=== PATIENT | male | born 1960 | race Caucasian/White ===

== ENCOUNTER 2024-03-29 17:09 | Emergency (ER) | payer OTHER, SELFPAY ==
[2024-03-29 17:10] VITALS: BP 178/96; PULSE 82; RESP 19; TEMP 36.2; O2SAT 99; BMI 30.9
--- NOTE | 2024-03-29 17:28 | CT_ITS ---
EXAM: CT CHEST, ABDOMEN AND PELVIS WITHOUT INTRAVENOUS CONTRAST CLINICAL INDICATION: fall -- t8-t10 pain TECHNIQUE: Helically acquired images were obtained of the chest, abdomen and pelvis without intravenous contrast. This CT exam was performed using one or more of the following dose reduction techniques: automated exposure control, adjustment of the mA and/or kV according to patient size, and/or use of iterative reconstruction technique. COMPARISON: No relevant prior studies available. FINDINGS: CHEST: LUNGS AND PLEURAL SPACES: There is minimal scarring in the lung bases. No mass. No pleural effusion or thickening. No pneumothorax. HEART: Unremarkable. Heart size is normal. No pericardial effusion. No significant coronary artery calcifications. MEDIASTINUM: There is a small hiatal hernia. No mediastinal or hilar adenopathy. Esophagus is unremarkable. THYROID: Unremarkable. No thyroid lesions. ABDOMEN: LIVER: Unremarkable. Homogeneous. GALLBLADDER AND BILE DUCTS: Unremarkable. No calcified gallstones. No gallbladder distention or wall edema. No intra- or extrahepatic biliary ductal dilation. PANCREAS: Unremarkable. No focal cystic mass. SPLEEN: Unremarkable. Normal size without focal cystic or solid mass. ADRENALS: Unremarkable. No nodules. KIDNEYS AND URETERS: Unremarkable. Normal renal size and position. No hydronephrosis. STOMACH AND BOWEL: Unremarkable. No stomach or bowel distention. No focal inflammatory change. PELVIS: APPENDIX: No evidence of acute appendicitis. BLADDER: Unremarkable. REPRODUCTIVE: Unremarkable as visualized. No mass. CHEST, ABDOMEN and PELVIS: INTRAPERITONEAL SPACE: Unremarkable. No ascites or other fluid collection. No free air. BONES/JOINTS: There are anterior osteophytes seen at multiple thoracic vertebral bodies. There are no acute osseous abnormalities. No suspicious lytic or blastic abnormality. SOFT TISSUES: Unremarkable. No discrete abdominal or pelvic wall hernia. VASCULATURE: Unremarkable. Aorta is non-dilated. LYMPH NODES: Unremarkable. No enlarged lymph nodes. CT/CT Chest, Abd, Pelvis WO Cont IMPRESSION: No acute abnormalities in the chest, abdomen or pelvis. There are degenerative changes in the thoracic and lumbar spine with osteophyte formation. There are no acute abnormalities. Electronically Signed: Alejandro Crabtree MD at 18:53 EDT ,
--- NOTE | 2024-03-29 17:28 | CT_ITS ---
EXAM: CT HEAD WITHOUT INTRAVENOUS CONTRAST CLINICAL INDICATION: fall TECHNIQUE: Multiple axial images were obtained of the head without intravenous contrast. This CT exam was performed using one or more of the following dose reduction techniques: automated exposure control, adjustment of the mA and/or kV according to patient size, and/or use of iterative reconstruction technique. COMPARISON: No relevant prior studies available. FINDINGS: BRAIN AND EXTRA-AXIAL SPACES: There is a benign-appearing calcification in the right frontal lobe. No intra- or extra-axial hemorrhage. No evidence of acute infarct. No intracranial mass or mass effect. There is preservation of the turner/white matter interface. Posterior fossa structures are unremarkable. Ventricles are appropriate for age. No hydrocephalus. Basal cisterns are patent. BONES/JOINTS: Unremarkable. No discrete lytic or blastic abnormalities. SINUSES: Unremarkable as visualized. Clear. MASTOID AIR CELLS: Unremarkable. Clear. ORBITS: Visualized globes, extraocular muscles, optic nerves and retrobulbar fat appear unremarkable. CT/Brain/Head without Contrast IMPRESSION: No acute findings in the head/brain. Electronically Signed: Alejandro Crabtree MD at 18:48 EDT ,
--- NOTE | 2024-03-29 17:28 | CT_ITS ---
EXAM: CT CERVICAL SPINE WITHOUT INTRAVENOUS CONTRAST CLINICAL INDICATION: fall TECHNIQUE: Helically acquired images were obtained of the cervical spine without intravenous contrast. 2D reformatted images were reviewed. This CT exam was performed using one or more of the following dose reduction techniques: automated exposure control, adjustment of the mA and/or kV according to patient size, and/or use of iterative reconstruction technique. COMPARISON: No relevant prior studies available. FINDINGS: VERTEBRAE: See below. DISCS/SPINAL CANAL/NEURAL FORAMINA: There is disc space narrowing at all levels greatest at C5-6. There is right bony neural foraminal narrowing at C3-4. SOFT TISSUES: Unremarkable. No prevertebral soft tissue swelling. LYMPH NODES: Unremarkable. No cervical adenopathy. LUNG APICES: Unremarkable as visualized. Clear. CT/Spine Cervical without Contras IMPRESSION: 1. No acute osseous abnormalities cervical spine. 2. Degenerative changes with disc space narrowing and bony neural foraminal narrowing. Electronically Signed: Alejandro Crabtree MD at 18:50 EDT ,
[2024-03-29] MEDS: fentaNYL 100 MCG/2 ML Ampul 50 MCG IM (17:48)
--- NOTE | 2024-03-29 18:14 | EX.ED.GENINJ ---
HPI History of Present Illness Chief Complaint: Trauma Informant: patient and spouse/S.O. Narrative Narrative: Presents by private car fall off mower 10 AM this morning. States he had a bump falling to the right sided backwards landing on his back. He thinks he passed out. He is not any anticoagulation. Pain with movement in the back region. Denies neck pain. Denies chest pain. Denies dyspnea. Denies any anticoagulation medicines. History of hypertension along with depression on medications. Denies nausea or vomiting. [facility] Medical History Bleeding hemorrhoid Depression Anxiety Hypertension Home Medications ?Medication ?Instructions ?Recorded ?Last Taken ?Type amlodipine 5 mg tablet 5 mg PO DAILY 08/28/15 09/01/15 07:00 History bupropion HCl 300 mg 24 hr tablet, 300 mg PO DAILY 08/28/15 Unknown History extended release metoprolol tartrate 50 mg tablet 50 mg PO BID 08/28/15 09/01/15 07:00 History paroxetine HCl 20 mg tablet 20 mg PO DAILY 08/28/15 Unknown History hydrocodone-acetaminophen 5-325mg 1 tab PO Q4H PRN PRN Pain ##30 09/01/15 Unknown Rx 5mg-325mg hydrocortisone 2.5 % topical cream 30 g NH Q4H PRN PRN Pain ##1 09/01/15 Unknown Rx with perineal applicator (Proctozone-HC) metronidazole 500 mg tablet 500 mg PO Q8H #15 tabs 09/01/15 Unknown Rx Allergy/AdvReac Type Severity Reaction Status Date / Time No Known Allergies Allergy Verified 03/29/24 17:12 Social History Smoking Status: Never smoker ROS ROS ED Constitutional Constitutional ED: Denies chills, fever(s) or sweats Eyes Eyes: Denies change in vision ENT ENT ED: Denies dysphagia or sore throat Cardiovascular Cardiovascular: Denies chest pain, leg edema, palpitations or racing heartbeat Respiratory/Chest Respiratory/Chest: Denies cough, dyspnea or dyspnea on exertion Gastrointestinal Gastrointestinal: Denies abdominal pain, diarrhea, nausea or vomiting Genitourinary Genitourinary ED: Denies dysuria, hematuria or urinary frequency Musculoskeletal Musculoskeletal: Reports back pain; Denies extremity pain or neck pain Integumentary Denies rash or wounds Neurologic Neurologic: Denies headache(s), paresthesias or weakness EXAM Physical Exam Const Vital Signs: 03/29/24 17:10 03/29/24 17:49 03/29/24 19:10 Temperature 97.2 F L Temperature Source Temporal Pulse Rate 82 80 Respiratory Rate 19 H 20 H Respiratory Effort Normal Respiratory Depth Normal Respiratory Pattern Normal Blood Pressure 178/96 H Blood Pressure Mean 123 Pulse Ox 99 95 Oxygen Delivery Method Room Air Room Air Room Air 03/29/24 19:29 Temperature 98.2 F Temperature Source Pulse Rate 81 Respiratory Rate 18 Respiratory Effort Respiratory Depth Respiratory Pattern Blood Pressure 180/89 H Blood Pressure Mean 119 Pulse Ox 94 Oxygen Delivery Method Positive well nourished and well developed Constitutional Narrative: GCS 15 General Appearance ED: well developed HEENT Reports moist mucous membranes HEENT Narrative: No hemotympanums normocephalic and atraumatic Eyes EOMs intact bilaterally and conjunctivae normal General Eye ED: Yes normal appearance of both eyes Neck full ROM, no lymphadenopathy and supple General: Negative for tenderness Chest Wall Chest Narrative: Mild tenderness lateral ribs no crepitus. Chest: Negative for tenderness Resp normal respiratory effort and normal air movement Resp Narrative: Symmetric breath sounds Effort and Inspection: symmetric chest movement; Negative for respiratory distress Cardio regular rate, regular rhythm and no murmurs Peripheral Pulses: pulses 2+ throughout GI normal to inspection, nondistended, normoactive bowel sounds and non-tender Palpation: Negative for guarding or rebound tenderness present Back/Spine no CVA tenderness Back/Spine Narrative: Mid T-spine tenderness at T8-T10 also. Thoracic tenderness to the left of this. No step-offs. Extremity normal to inspection and full ROM Extremity Narrative: Negative logroll the lower extremities. Full range of motion upper extremities. Pulses intact x 4. General Extremety ED: Negative for edema or tenderness General Extremity: Negative for edema Neuro oriented x3, CN's II-XII intact bilaterally and no sensory deficits noted Sensorium / Orientation: awake and alert Skin no rashes or lesions noted and no wounds MDM MDM MDM Narrative Medical decision making narrative: Interventions / MDM: Differential diagnosis: Contusion Diagnosis considered but do not suspect: Intracranial hemorrhage, fractures however CT imagings were negative. My EKG interpretation: N/A Imaging independently reviewed and interpreted by myself: CT brain/cervical spine: No intracranial hemorrhage, no cervical spine fractures. CT chest abdomen pelvis without contrast: No fractures no degenerative changes of thoracic spine noted. No pneumothorax. External documents reviewed: N/A Test considered but not ordered:N/A ED course: Fall off tractor 3 feet with loss of consciousness. Tender T-spine and left lateral ribs. IM fentanyl ordered. Trauma scans head neck chest abdomen pelvis ordered for further evaluation. 1919 admit studies are all negative. Patient reassured on findings. Declines additional pain medicines he states he will use ibuprofen at home. Outpatient follow-up. All questions were answered. Patient significant other Re-evaluation: stable Disposition discussed with patient/family/significant other: Case discussed with consulting clinician: N/A This note was generated with [employer] dictation software. It may contain incorrect words, spelling, and punctuation that were not noted in checking the note before signing. Radiography Diagnostic Testing: Clinical Impression(s) from Imaging Studies Brain CT 03/29/24 17:28 IMPRESSION: No acute findings in the head/brain. Electronically Signed: Alejandro Crabtree MD at 18:48 EDT , Cervical Spine CT 03/29/24 17:28 IMPRESSION: 1. No acute osseous abnormalities cervical spine. 2. Degenerative changes with disc space narrowing and bony neural foraminal narrowing. Electronically Signed: Alejandro Crabtree MD at 18:50 EDT , Chest/Abdomen/Pelvis CT 03/29/24 17:28 IMPRESSION: No acute abnormalities in the chest, abdomen or pelvis. There are degenerative changes in the thoracic and lumbar spine with osteophyte formation. There are no acute abnormalities. Electronically Signed: Alejandro Crabtree MD at 18:53 EDT , Discharge Plan Triage Chief Complaint: Trauma ED Provider: Alejandro Sinclair Dx/Rx/DC Orders Clinical Impression: Back contusion, Acute head injury with loss of consciousness Instructions: ED Back Contusion, ED Head Injury (Adult) Prescriptions: No Action amlodipine 5 MG tablet 5 mg PO DAILY paroxetine HCl 20 MG tablet 20 mg PO DAILY metoprolol tartrate 50 MG tablet 50 mg PO BID bupropion HCl 300 MG tablet extended release 24 hr 300 mg PO DAILY hydrocodone-acetaminophen 1 TABLET tablet 1 tab PO Q4H PRN PRN (Reason: Pain) Qty: 30 0RF hydrocortisone [Proctozone-HC] 30 GM cream with perineal applicator 30 g NH Q4H PRN PRN (Reason: Pain) Qty: 1 0RF metronidazole 500 MG tablet 500 mg PO Q8H Qty: 15 0RF Primary Care Provider: Davis Penn Referrals: Davis Penn DO [Primary Care Provider] - 1 Week Activity Restrictions/Additional Instructions: CT brain and cervical spine negative. CT chest abdomen pelvis negative for fractures. Degenerative changes thoracic spine noted. Use Tylenol or ibuprofen every 6 hours as needed. Follow-up with your doctor. Print Language: Mongolian Disposition Disposition: Home, Self Care Discharge Date/Time: 03/29/24 19:32
[2024-03-29 19:10] VITALS: PULSE 80; RESP 20; O2SAT 95
[2024-03-29 19:29] VITALS: BP 180/89; PULSE 81; RESP 18; TEMP 36.8; O2SAT 94
== END 2024-03-29 19:32 | disposition home or self-care (01) ==
PROVIDERS: Emergency Provider Emergency Medicine; PCP Family Medicine; Visit Provider Emergency Medicine
DX: S06.9X9A Unspecified intracranial injury with loss of consciousness of unspecified duration, initial encounter (principal); S20.222A Contusion of left back wall of thorax, initial encounter; W17.89XA Other fall from one level to another, initial encounter; I10 Essential (primary) hypertension; Z79.899 Other long term (current) drug therapy
CPT/HCPCS: 70450; 71250; 72125; 74176; 96372; 99282